=== PATIENT | male | born 1980 | race Caucasian/White ===

== ENCOUNTER → 2016-11-14 | Day surgery (SDC) | payer MEDICAID ==
[~2016-11-14] MED LIST: IOPAMIDOL (ISOVUE-M 300) 15 ML VIAL IV ONE; LIDOCAINE 1% 30 ML SDV ONE; TRIAMCINOLONE ACETONIDE 200 MG/5 ML MDV IM ONE
== END | disposition home or self-care (01) ==
LOC: FIMAGING 13:04
PROVIDERS: ATTEND Neurological Surgery
DX: M54.16 Radiculopathy, lumbar region (principal)
CPT/HCPCS: J3301; Q9967

== ENCOUNTER 2017-01-13 11:50 | Day surgery (SDC) | payer MEDICAID ==
[2017-01-13] MEDS ORDERED: TRIAMCINOLONE ACETONIDE 200 MG/5 ML MDV IM ONE (14:02)
[2017-01-13] MEDS ORDERED: IOPAMIDOL (ISOVUE-M 300) 15 ML VIAL ONE (14:02)
[2017-01-13] MEDS ORDERED: LIDOCAINE 1% 300 MG/30 ML SDV ONE (14:02)
== END 2017-01-13 14:32 | disposition home or self-care (01) ==
LOC: FIMAGING 11:50
PROVIDERS: ATTEND Neurological Surgery
PROC: 3E0S33Z Introduction of Anti-inflammatory into Epidural Space, Percutaneous Approach (ICD-10-PCS; principal; 2017-01-13)
PROC: 3E0S3BZ Introduction of Anesthetic Agent into Epidural Space, Percutaneous Approach (ICD-10-PCS; principal; 2017-01-13)
DX: M54.16 Radiculopathy, lumbar region (principal); M54.31 Sciatica, right side
CPT/HCPCS: J3301; Q9967